=== PATIENT | female | born 1975 | race Hispanic/Latino ===

== ENCOUNTER 2018-08-21 15:11 | Emergency (ER) | payer OTHER | END 2018-08-21 15:39 | disposition home or self-care (01) | LOC: EDH 15:11 | DX: K08.89 Other specified disorders of teeth and supporting structures (principal); Z72.0 Tobacco use; Z90.49 Acquired absence of other specified parts of digestive tract | CPT/HCPCS: 99281 ==

== ENCOUNTER 2019-03-22 10:37 | Emergency (ER) | payer MEDICAID ==
[2019-03-22] MEDS ORDERED: TETANUS/DIPHTHERIA TOXOID [ADULT] 0.5 ML VIAL IM ONE (11:03)
== END 2019-03-22 11:56 | disposition home or self-care (01) ==
LOC: EDH 10:37
DX: S61.412A Laceration without foreign body of left hand, initial encounter (principal); Z87.891 Personal history of nicotine dependence; W54.0XXA Bitten by dog, initial encounter; Y93.89 Activity, other specified; Y92.89 Other specified places as the place of occurrence of the external cause; Y99.8 Other external cause status
CPT/HCPCS: 73130; 90471; 90714